=== PATIENT | male | born 1975 | race Two or more races ===

== ENCOUNTER 2016-07-24 18:30 | Emergency (ER) | payer SELFPAY ==
[~2016-07-24] VITALS: Ht 165.1 cm; Wt 63.5 kg
[2016-07-24 18:41] VITALS: BP 139/80
[2016-07-24] MEDS ORDERED: Bacitracin Oint UD TOPIC ONE ×2 (21:07→21:30)
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
[2016-07-24 21:21] VITALS: BP 125/77
[2016-07-24] MEDS ORDERED: CYCLOBENZAPRINE10 MG ORAL (21:27)
[2016-07-24] MEDS ORDERED: IBUPROFEN600 MG ORAL (21:27)
[2016-07-24 21:38] VITALS: BP 125/77
--- NOTE | 2016-07-25 10:37 | Diagnostic Imaging Report ---
Indication: Neck pain. Technique: Continuous helical imaging of the cervical spine was obtained transaxially from the skull base to the upper thoracic spine. 2-D coronal and sagittal reformatted images were obtained. Total Dose length Product (DLP): [address] Dose Index Volume (CTDIvol): 11 mGy Comparison: None Findings: There is no acute fracture or malalignment identified. There is no soft tissue swelling identified. 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 Some of the intervertebral discs show mild narrowing. Impression: No acute injury Mild spondylosis The CT scanner at [facility] is accredited by the [employer] and the scans are performed using protocols designed to limit radiation exposure to as low as reasonably achievable to attain images of sufficient resolution adequate for diagnostic evaluation.
--- NOTE | 2016-07-25 10:37 | Diagnostic Imaging Report ---
Indication: Headache Technique: Contiguous 5 mm thick transaxial imaging of the head obtained in a Siem[employer] Sensation [address] scanner[address] Soft tissue and bone windows generated. Total Dose length Product (DLP): [address] Dose Index Volume (CTDIvol): 70.38 mGy Comparison: none Findings: The size and configuration of the cortical sulci, basal cisterns, and ventricles are within normal limits for age. There is a cavum septum pellucida. There is no mass effect, midline shift, or edema identified. There is no evidence of acute hemorrhage or abnormal intra-axial or extra-axial fluid collections. The bones and soft tissues are unremarkable. Impression: No mass effect, edema or acute bleed. The CT scanner at [facility] is accredited by the [employer] and the scans are performed using protocols designed to limit radiation exposure to as low as reasonably achievable to attain images of sufficient resolution adequate for diagnostic evaluation.
== END 2016-07-24 21:38 | disposition home or self-care (01) ==
LOC: EDBD 18:30 → EMR 19:00
DX: S80.812A Abrasion, left lower leg, initial encounter (principal); M79.604 Pain in right leg; V13.4XXA Pedal cycle driver injured in collision with car, pick-up truck or van in traffic accident, initial encounter; Y92.410 Unspecified street and highway as the place of occurrence of the external cause; Y99.8 Other external cause status
CPT/HCPCS: 70450; 72125; 99284